=== PATIENT | female | born 1985 | race Caucasian/White ===

== ENCOUNTER → 2022-12-17 | Outpatient (CLI) | payer OTHER, SELFPAY ==
--- NOTE | 2022-12-17 10:16 | MRI_ITS ---
STUDY: BILATERAL BREAST MR WITHOUT AND WITH CONTRAST REASON FOR EXAM: Female, 37 years old. Ductal carcinoma right breast. TECHNIQUE: Multi-sequence multi-echo imaging of both breasts was performed with a dedicated breast coil. T1-weighted and T2-weighted images were performed before the administration of contrast. T1-weighted images were also performed after the intravenous administration of 17 mL of Clariscan contrast. COMPARISON: Prior bilateral mammogram dated October 20, 2022, unilateral right breast ultrasound dated October 20, 2022 and right diagnostic mammogram and ultrasound-guided biopsy of the right breast dated November 24, 2022. FINDINGS: RIGHT BREAST: The breast tissue is heterogeneously dense fibroglandular tissue with minimal background enhancement In the subareolar region of the right breast at approximately the 9:00 position and corresponding to the ultrasonographic findings there is an irregular enhancing mass measuring 2 cm x 1.7 cm x 2 cm. This lesion corresponds to the index lesion which underwent ultrasound-guided biopsy. A second ovoid irregular enhancing lesion is identified 5.8 cm behind the nipple and 2.3 cm above the nipple measuring 12 mm x 8 mm x 6 mm. A second look ultrasound of the medial aspect of the right breast to further evaluate this lesion is recommended. Ultrasound-guided biopsy may be required. LEFT BREAST: The breast tissue is heterogeneously dense fibroglandular tissue with minimal background enhancement No abnormal enhancing masses or areas of non-mass enhancement in the left breast. Shotty lymph nodes in both axillae. No abnormality in the visualized regions of the chest or liver. MRI/Breast Bilateral W/O and W IMPRESSION: Irregular enhancing lesion in the slightly lateral subareolar region of the right breast corresponding to the index lesion. Second lesion in the medial and slightly upper aspect of the right breast for which further evaluation with second look ultrasound is recommended. See discussion above. CATEGORY: BIRADS Category 0: Incomplete. Need additional imaging evaluation. A letter regarding these results will be sent to the patient by the facility within 30 days. Electronically Signed: Kleber Bojorquez, at 15:45 EDT ,
== END | disposition home or self-care (01) ==
PROVIDERS: PCP Nurse Practitioner Adult Health; Visit Provider Surgery
DX: C50.911 Malignant neoplasm of unspecified site of right female breast (principal)
CPT/HCPCS: 77049; A9575; A4216; C8908

== ENCOUNTER → 2022-12-19 | Outpatient (CLI) | payer OTHER, SELFPAY ==
--- NOTE | 2022-12-19 08:03 | US_ITS ---
STUDY: ULTRASOUND BREAST - RIGHT REASON FOR EXAM: Female, 37 years old. Abnormal MRI examination. TECHNIQUE: Axial and longitudinal images of the RIGHT breast were performed with a high resolution ultrasound transducer. # OF IMAGES: [id number] COMPARISON: Comparison is made with prior MRI of the breasts dated December 17, 2022. FINDINGS: RIGHT Breast: The entire medial aspect of the right breast was examined with ultrasound. There is a 1.6 cm x 1.7 cm x 1.5 cm heterogeneous mass at the 9:00 position of the breast adjacent to the nipple. A tissue clip marker is seen within it. The abnormality visualized on the MRI examination is not seen on this examination. US/Breast Limited Unilateral IMPRESSION: 1.6 cm x 1.7 cm x 1.5 cm heterogeneous mass at the 9:00 position of the breast adjacent to the nipple. No other abnormality is seen. ASSESSMENT CATEGORY: BIRADS Category 4: Suspicious - Biopsy Should Be Considered. A letter regarding these results will be sent to the patient by the facility within 30 days. Electronically Signed: Siva Daniel MD at 15:59 EDT ,
== END | disposition home or self-care (01) ==
PROVIDERS: PCP Nurse Practitioner Adult Health; Visit Provider Surgery
DX: C50.911 Malignant neoplasm of unspecified site of right female breast (principal)
CPT/HCPCS: 76642